=== PATIENT | female | born 1975 | race Caucasian/White ===

== ENCOUNTER 2019-07-09 01:07 | Emergency (ER) | payer SELFPAY ==
[~2019-07-09] VITALS: Ht 167.6 cm; Wt 97.5 kg
[2019-07-09 02:05] LABS: Calcium, Ionized (POC) 1.14 mmol/L (1.10-1.46); Chloride (POC) 106 mmol/L (98-108); Creatinine (POC) 0.7 mg/dL (0.6-1.0); Glucose (ISTAT POC) 82 mg/dL (70-99); Hemoglobin (POC) 13.9 g/dL (12.0-16.0); Potassium (POC) 3.7 mmol/L (3.5-5.5); Sodium (POC) 140 mmol/L (135-148); Total CO2 (POC) 24 mmol/L (21-32)
== END 2019-07-09 03:00 | disposition home or self-care (01) ==
LOC: ER 01:07
PROVIDERS: Emergency Medicine
DX: S00.01XA Abrasion of scalp, initial encounter (principal); F43.10 Post-traumatic stress disorder, unspecified; W01.10XA Fall on same level from slipping, tripping and stumbling with subsequent striking against unspecified object, initial encounter
CPT/HCPCS: 70450; 80047; 85014; 96360; 99284-25; A9270-GY; J7030